=== PATIENT | female | born 1995 | race Caucasian/White ===

== ENCOUNTER 2017-07-25 09:51 | Day surgery (SDC) | payer BC, OTHER ==
[~2017-07-25] VITALS: Ht 165.1 cm; Wt 49.1 kg
[~2017-07-25 09:51] MED LIST: BUPIVACAINE/PF 0.25% ONE
[2017-07-25] MEDS ORDERED: LACTATED RINGERS 1,000 ML IV SCH (10:27)
[2017-07-25] MEDS ORDERED: LIDOCAINE 1%, 2ML SQ PRN (10:30)
[2017-07-25] MEDS ORDERED: CLON-364 PO (10:30)
[2017-07-25] MEDS ORDERED: LIDOCAINE-MPF 1%, 2ML ONE (10:36)
[2017-07-25 10:45] VITALS: BP 113/76
[2017-07-25 10:56] LABS: HCG UR SG 1.021 (1.003-1.030)
[2017-07-25] MEDS ORDERED: OXYcodone 5 MG/5 ML ORAL.SOL UDC PO PRN ×2 (11:00→12:00)
[2017-07-25] MEDS ORDERED: FENTANYL PF 100 MCG/2ML IV PRN (11:00)
[2017-07-25] MEDS ORDERED: ACETAMINOPHEN 325 MG TABLET PO PRN ×2 (11:00→12:00)
[2017-07-25] MEDS ORDERED: PROMETHAZINE 12.5 MG SUPP PR PRN ×2 (11:00→12:00)
[2017-07-25] MEDS ORDERED: MEPERIDINE/PF 25MG/0.5ML IVPush PRN (11:00)
[2017-07-25] MEDS ORDERED: HYDROmorphone 1 MG/ML, 1ML IV PRN (11:00)
[2017-07-25] MEDS ORDERED: VASOPRESSIN 20 UNIT/ML, 1ML ONE (11:39)
[2017-07-25] MEDS ORDERED: FENTANYL PF 250 MCG/5ML ONE (12:00)
[2017-07-25] MEDS ORDERED: MIDAZOLAM 1 MG/ML, 2ML ONE (12:00)
[2017-07-25] MEDS ORDERED: GLYCOPYRROLATE 0.2MG/1ML, 5ML ONE (12:12)
[2017-07-25] MEDS ORDERED: BUPIVACAINE/PF 0.25% ONE (12:13)
[2017-07-25] MEDS ORDERED: ONDANSETRON 2MG/ML, 2ML ONE (12:26)
[2017-07-25] MEDS ORDERED: KETOROLAC 30 MG/1 ML ONE (12:26)
[2017-07-25] MEDS ORDERED: DEXAMETHASONE 4 MG/ML, 1ML ONE ×2 (12:26)
[2017-07-25] MEDS ORDERED: ROCURONIUM 10 MG/ML,10ML ONE (12:27)
[2017-07-25] MEDS ORDERED: PROPOFOL 10 MG/ML, 20ML ONE (12:27)
[2017-07-25] MEDS ORDERED: HYDROmorphone 2 MG/ML, 1ML ONE ×2 (12:57→14:52)
[2017-07-25] MEDS ORDERED: INTERCEED 3 X 4 INCH DRESSING ONE (13:01)
[2017-07-25] MEDS ORDERED: NEOSTIGMINE 1 MG/ML, 10ML ONE (14:09)
[2017-07-25] MEDS ORDERED: ACETAMINOPHEN 650 MG/20.3 ML UDC ONE (14:40)
[2017-07-25] MEDS ORDERED: FENTANYL PF 100 MCG/2ML ONE (14:40)
[2017-07-25] MEDS ORDERED: OXYcodone 5 MG/5 ML ORAL.SOL UDC ONE (14:41)
[2017-07-25] MEDS: FENTANYL PF 100 MCG/2ML IV PRN ×2 (14:43→14:50)
[2017-07-25] MEDS: HYDROmorphone 1 MG/ML, 1ML IV PRN ×3 (14:55→15:16)
[2017-07-25] MEDS ORDERED: OXYcodone/APAP 5/325MG TABLET PO PRN (16:30)
[2017-07-25] MEDS ORDERED: PROMETHAZINE 12.5 MG SUPP PR ONE (16:30)
[2017-07-25] MEDS ORDERED: ONDANSETRON 2MG/ML, 2ML IVPush PRN (16:30)
[2017-07-25] MEDS ORDERED: IBUPROFEN 600 MG TABLET PO SCH (21:00)
== END 2017-07-25 18:00 ==
LOC: OUT 09:51
PROVIDERS: ATTEND Specialist
DX: N80.1 Endometriosis of ovary (principal); N83.202 Unspecified ovarian cyst, left side; N73.6 Female pelvic peritoneal adhesions (postinfective); F17.200 Nicotine dependence, unspecified, uncomplicated; F12.90 Cannabis use, unspecified, uncomplicated; Z72.89 Other problems related to lifestyle; Z98.890 Other specified postprocedural states
CPT/HCPCS: 58662; 81025; 88305; J1100; J1170; J1885; J2250; J2405; J2704; J2710; J3010; J3490; J7120